=== PATIENT | female | born 1980 | race Caucasian/White ===

== ENCOUNTER 2016-08-14 06:46 | Day surgery (SDC) | payer BC ==
[~2016-08-14] VITALS: Ht 160 cm; Wt 65.5 kg
[2016-08-14] MEDS ORDERED: MTF1000T PO (07:29)
[2016-08-14] MEDS ORDERED: OXYC1TAB6 PO (07:29)
[2016-08-14 07:35] VITALS: Ht 160 cm; Wt 65.5 kg
[2016-08-14 07:56] VITALS: BP 119/76; PULSE 74; RESP 16
[2016-08-14] MEDS ORDERED: FENTAnyl 50 MCG/ML VIAL ONE (08:41)
[2016-08-14] MEDS ORDERED: MIDAZOLAM 1 MG/ML 2 ML INJ ONE ×2 (08:41)
[2016-08-14 09:05] VITALS: BP 105/85; PULSE 70; RESP 19
--- NOTE | 2016-08-14 11:39 | GILP ---
DATE OF PROCEDURE: NAME OF PROCEDURES: 1. Esophagogastroduodenoscopy and biopsy. 2. Colonoscopy and biopsy. SURGEON: Pollo Flores MD PREOPERATIVE DIAGNOSES: 1. Abdominal pain. 2. Chronic diarrhea. POSTOPERATIVE DIAGNOSES 1. Gastritis. 2. Gastric mucosal biopsies are positive for Helicobacter pylori infection. 3. Colonoscopy all the way to the cecum and into the terminal ileum. 4. Normal terminal ileum. 5. Poor prep making the exam suboptimal. 6. Internal hemorrhoids. 7. Random biopsies were taken to rule out microscopic colitis. INDICATION FOR THE PROCEDURE: Ms. Anabel Hutson is a 36-year-old female patient who had u pper abdominal pain, not responding to therapy. She also had lower abdominal pain and chronic diarr hea. The patient was scheduled for endoscopy and colonoscopy for further evaluation. The procedures and possible complications were well explained to the patient. The patient understoo d and consented to the procedure. DESCRIPTION OF PROCEDURE: Under the influence of fentanyl and Versed, the gastroscope was carefully introduced into the esophagus and under direct vision, it was advanced to the stomach and through t he pylorus into the duodenal bulb and descending duodenum. FINDINGS: ESOPHAGUS: The mucosa was normal. STOMACH: The patient had gastritis. Biopsies were positive for H pylori infection. DUODENUM: Normal. The colonoscope was carefully introduced in the rectum and under direct vision, it was advanced all the way to the cecum and into the terminal ileum. FINDINGS: The terminal ileum was normal. The patient had poor prep with liquid stool all over the colon making the exam somewhat suboptimal. Random biopsies were taken to rule out microscopic colit is. No gross neoplasm was identified. The patient had internal hemorrhoids. She tolerated the procedures very well and there was no complication from the procedures. At the en d of the procedures, she was awake with stable vital signs and she was discharged home to the [facility] f her family. IMPRESSION: 1. Gastritis. 2. Gastric mucosal biopsies were positive for Helicobacter pylori test. 3. Colonoscopy all the way to the cecum and into the terminal ileum. 4. Normal terminal ileum. 5. Poor prep with liquid stool all over making the exam somewhat suboptimal. 6. Random biopsies were taken to rule out microscopic colitis. 7. No gross neoplasm was identified. 8. Internal hemorrhoids. PLAN: 1. Nexium 24 hours p.o. every morning. 2. Bentyl 10 mg p.o. t.i.d. p.r.n. for pain or diarrhea. 3. Zantac 300 mg p.o. b.i.d. 4. Doxycycline 100 mg p.o. b.i.d. 5. Flagyl 500 mg p.o. b.i.d. 6. Pepto-Bismol 2 tablets) p.o. q.i.d. These last 4 medications for 14 days for H pylori infection. Dictated By: POLLO FLORES MD GD/NTS Conf#: [id number] DID#: [id number] CC: ROBYN LYONS MD;*EndCC*
--- NOTE | 2016-08-14 16:04 | CONS ---
DATE OF ADMISSION: 08/14/2016 DATE OF CONSULTATION: TYPE OF CONSULTATION: Preoperative gastroenterology consult Dear Dr. Cervantes: I thank you very much for this kind referral. HISTORY OF PRESENT ILLNESS: Ms. Anabel Hutson is a 36-year-old female patient who has bee n referred to me for further evaluation of abdominal pain. The patient states she has pain in the u pper part of the abdomen as well as on the right side. There is no past history of peptic ulcer dis ease. Patient underwent abdominal ultrasound and CT scan and no definite abnormality was detected. There is no history of gallstones. She does not have any fever, chills or jaundice. There is no h istory of liver disease. The patient also complains of chronic diarrhea. There is no past history of inflammatory bowel disease. She is not a hypertensive. She is a diabetic. She does not have an y heart disease or lung problem. There is no history of kidney disease. SOCIAL HISTORY: She is a nonsmoker. She does not abuse alcohol. FAMILY HISTORY: Negative for gastrointestinal tract neoplasm and inflammatory bowel disease. ALLERGIES: THERE IS NO HISTORY OF SIGNIFICANT DRUG ALLERGY. MEDICATIONS 1. Metformin. 2. Gabapentin. 3. Tylenol. PHYSICAL EXAMINATION VITAL SIGNS: She is 5 feet 3 inches tall and she weighs 149 pounds. HEART: Examination of the heart reveals normal first and second heart sounds. LUNGS: Clear. ABDOMEN: Soft without any distention. Liver and spleen are not palpable. There are no masses. Th ere is no focal tenderness. Normal bowel sounds are heard. CENTRAL NERVOUS SYSTEM: Does not reveal any focal neurological deficits. IMPRESSION: 1. Upper abdominal pain. 2. The patient had abdominal ultrasound and CT scan done and they were normal. 3. Chronic diarrhea and right-sided abdominal pain. 4. Rule out inflammatory bowel disease. 5. Diabetes mellitus. PLAN: Upper endoscopy and colonoscopy for further evaluation. The procedures and possible complications are well explained to the patient. She understands and co nsents to the procedures. I thank you once again. With warmest personal regards. Dictated By: POLLO RODRÍGUEZ/NTS Conf#: [id number] DID#: [id number]
== END 2016-08-14 09:38 | disposition home or self-care (01) ==
LOC: GIL 06:46
PROVIDERS: ATTEND Internal Medicine Gastroenterology
DX: K64.8 Other hemorrhoids (principal); K29.70 Gastritis, unspecified, without bleeding; B96.81 Helicobacter pylori [H. pylori] as the cause of diseases classified elsewhere; E11.9 Type 2 diabetes mellitus without complications
CPT/HCPCS: 43239; 45380; 82962; 84703; 87081; 88305; J2250; J3010; Z7610

== ENCOUNTER 2018-12-15 16:36 | Emergency (ER) | payer BC ==
[~2018-12-15] VITALS: Ht 157.5 cm; Wt 66.2 kg
[~2018-12-15 16:36] MED LIST: MTF1000T PO; OXYC1TAB6 PO
[2018-12-15 16:37] VITALS: Ht 157.5 cm; Wt 66.2 kg
[2018-12-15] MEDS ORDERED: SOD CHLORIDE 0.9% 1,000 ML IV STA (17:24)
[2018-12-15] MEDS ORDERED: morphine 2 MG INJ IV STA (17:24)
[2018-12-15] MEDS ORDERED: ONDANSETRON 4 MG INJ IV STA (17:24)
[2018-12-15] MEDS ORDERED: FAMOTIDINE 20 MG INJ IV STA (17:24)
--- NOTE | 2018-12-15 17:33 | ERD ---
ER Documentation Chief Complaint Chief Complaint RUQ PAIN , VOMITTING STARTED 3 DAYS HPI This is a 38-year-old female with a history of hypertension, hypercholesteremia, diabetes who presents to ED with complaints of upper abdominal pain x 3 days. Patient describes it as a constant sharp pain with radiation to the back. Admits to nausea with one episode of vomiting today. Pain is aggravated by eating. denies fever, chills, diarrhea, constipation, hematemesis, melena, hematochezia, dysuria, hematuria. No known drug allergies. Immunizations up-to-date. ROS All systems reviewed and are negative except as per history of present illness. Medications Home Meds Reported Medications Metformin* (Glucophage*) 1,000 Mg Tablet, 1000 MG PO DAILY, #30 TAB 08/14/16 Oxycodone Hcl-Acetaminophen* (Oxycodone Hcl-Acetaminophen*) 2.5-325 Mg Tablet, 1 TAB PO ONCE PRN for PAIN, TAB 08/14/16 Allergies Allergies: Coded Allergies: No Known Allergy (Unverified , 08/14/16) PMhx/Soc History of Surgery: Yes ( x4) Anesthesia Reaction: No Hx Neurological Disorder: No Hx Respiratory Disorders: No Hx Cardiac Disorders: No Hx Psychiatric Problems: No Hx Miscellaneous Medical Probl: No Hx Alcohol Use: No Hx Substance Use: No Hx Tobacco Use: No Smoking Status: Never smoker FmHx Family History: No diabetes Physical Exam Vitals Vital Signs Date Temp Pulse Resp B/P (MAP) Pulse Ox O2 O2 Flow FiO2 Time Delivery Rate 12/15/18 97.4 78 20 105/69 98 16:37 (81) Physical Exam Physical Exam Vitals signs: Reviewed by me. General: Well developed, well nourished, in mild distress. Patient is awake and alert. Head: Normocephalic, atraumatic. Eyes: Normal conjunctiva, Pupils PERRLA, EOM intact grossly ENT: Pharynx is clear, Moist mucous membranes, external ears, nose and mouth normal Neck: Supple, no masses, lymphadenopathy or JVD Respiratory: Clear to auscultation bilaterally with no wheezing, rhonchi, rales, no distress Cardiovascular: RRR, no murmurs, rubs, or gallops Abdominal: Soft, nondistended, no peritoneal signs, no rigidity, no surgical abdomen, bowel sounds present all 4 quadrants, moderate tenderness palpation in the right upper quadrant, Rodriguez sign positive, nontender palpation in all other areas, McBurney's point nontender : Deferred MSK: No edema, no unilateral swelling, 5/5 strength Back: No midline tenderness. No flank tenderness Neurologic: Alert and oriented, moving all extremities, normal speech, no focal weakness, no cerebellar signs. Normal mentation Skin: warm and dry, No rash Psych: Normal mood Result Diagram: 12/15/18 1738 12/15/18 1738 Results 24 hrs Laboratory Tests Test 12/15/18 17:38 12/15/18 17:40 White Blood Count 4.7 10^3/ul Red Blood Count 4.80 10^6/ul Hemoglobin 14.3 g/dl Hematocrit 42.1 % Mean Corpuscular Volume 87.7 fl Mean Corpuscular Hemoglobin 29.8 pg Mean Corpuscular Hemoglobin Concent 34.0 g/dl Red Cell Distribution Width 12.1 % Platelet Count 196 10^3/UL Mean Platelet Volume 10.8 fl Immature Granulocytes % 0.400 % Neutrophils % 46.4 % Lymphocytes % 40.0 % Monocytes % 9.1 % Eosinophils % 3.0 % Basophils % 1.1 % Nucleated Red Blood Cells % 0.0 /100WBC Immature Granulocytes # 0.020 10^3/ul Neutrophils # 2.2 10^3/ul Lymphocytes # 1.9 10^3/ul Monocytes # 0.4 10^3/ul Eosinophils # 0.1 10^3/ul Basophils # 0.1 10^3/ul Nucleated Red Blood Cells # 0.0 10^3/ul Urine Color YELLOW Urine Clarity CLEAR Urine pH 6.0 Urine Specific [place] 1.028 Urine Ketones NEGATIVE mg/dL Urine Nitrite NEGATIVE mg/dL Urine Bilirubin NEGATIVE mg/dL Urine Urobilinogen NEGATIVE mg/dL Urine Leukocyte Esterase NEGATIVE Libra/ul Urine Hemoglobin NEGATIVE mg/dL Urine Glucose 3+ mg/dL Urine Total Protein NEGATIVE mg/dl Sodium Level 136 mmol/L Potassium Level 3.9 mmol/L Chloride Level 100 mmol/L Carbon Dioxide Level 28 mmol/L Anion Gap 8 Blood Urea Nitrogen 14 mg/dl Creatinine 0.64 mg/dl Est Glomerular Filtrat Rate mL/min > 60 mL/min Glucose Level 298 mg/dl Calcium Level 9.0 mg/dl Total Bilirubin 0.4 mg/dl Direct Bilirubin 0.00 mg/dl Indirect Bilirubin 0.4 mg/dl Aspartate Amino Transf (AST/SGOT) 23 IU/L Alanine Aminotransferase (ALT/SGPT) 26 IU/L Alkaline Phosphatase 137 IU/L Total Protein 7.2 g/dl Albumin 3.9 g/dl Globulin 3.30 g/dl Albumin/Globulin Ratio 1.18 Lipase 74 U/L POC Beta HCG, Qualitative NEGATIVE Current Medications Medications Dose Sig/Debora Start Time Status Last (Trade) Ordered Route PRN Stop Time Admin Dose Reason Admin Sodium 1,000 ml @ Q1H STAT 12/15/18 DC 12/15/18 Chloride 1,000 mls/hr IV 17:24 17:44 12/15/18 18:23 Morphine 4 mg ONCE STAT 12/15/18 DC 12/15/18 Sulfate IV 17:24 17:43 (morphine) 12/15/18 17:26 Ondansetron 4 mg ONCE STAT 12/15/18 DC 12/15/18 HCl (Zofran IV 17:24 17:44 Inj) 12/15/18 17:26 Famotidine 20 mg ONCE STAT 12/15/18 DC 12/15/18 (Pepcid Iv) IV 17:24 17:44 12/15/18 17:26 Procedures/MDM EKG, MONITORS, & DIAGNOSTIC IMAGING: [place] [id number] Radiology Main Line: [phone] DIAGNOSTIC IMAGING REPORT Patient: SONAM MUJICA : 1980 Age: 38 Sex: F MR #: [id number] DOS: 12/15/18 1724 Ordering MD: MARIBELL CROWE PA-C Location: [facility] Room/Bed: PROCEDURE: Right upper quadrant ultrasound CLINICAL INDICATION: Abdominal pain TECHNIQUE: Multiple real-time images were acquired of the patient's abdomen and right retroperitoneum utilizing a high resolution transducer. COMPARISON: None FINDINGS: The liver is normal in echogenicity and measures 12.6 cm. No focal hepatic masses are seen. The gallbladder is physiologically distended. There is no evidence of gallstones, gallbladder wall thickening, or pericholecystic fluid. The intra and extrahepatic bile ducts are normal in caliber. The common bile duct measures 3.3 mm. Midline images demonstrate the pancreas head to be normal in echogenicity without obvious inflammatory change. The body and tail are suboptimally seen. Survey views of the right kidney demonstrate no evidence of hydronephrosis or renal calculi. The right kidney measures 11.6 cm. IMPRESSION: Unremarkable right upper quadrant ultrasound. No evidence of cholelithiasis or acute cholecystitis.. RPTAT: HH .Ivan Lancaster MD, MD Date Time Electronically viewed and signed by .Ivan Lancaster MD, on 12/15/2018 18:31 .W/ CC: MARIBELL CROWE PA-C [id number] LAB INTERPRETATION: CBC shows no evidence of hemorrhage or infection Chemistry shows elevated glucose of 298, otherwise no evidence of significant electrolyte abnormality or renal insufficiency Liver function test shows a mildly elevated alkaline phosphatase of 137 Lipase shows no evidence of acute pancreatitis Urine negative Urinalysis shows 3+ glucose but otherwise unremarkable ER COURSE: The patient was given morphine, IV normal saline, Zofran, Pepcid The medication was well tolerated and the patient reports improvement in symptoms. The patient was stable throughout ED course. I kept the patient and/or family informed of laboratory and diagnostic imaging results throughout the emergency room course. The patient was promptly evaluated and a treatment plan was devised based on H&P and other data. This plan was discussed with the patient who agreed and had no further questions or concerns prior to discharge. MEDICAL DECISION MAKING: This is a 38-year-old female presents ED with complaints of upper abdominal pain x3 days. Non- woman presenting with abdominal pain. test is negative. Considered causes of female-specific abdominal pain including pelvic inflammatory disease, tubo-ovarian abscess, Gthl-Lamh-Ykizte, and ovarian torsion. Also considered causes of abdominal pain that are not gender-specific (e.g., appendicitis, volvulus, small bowel obstruction, mesenteric adenitis, acute cholecystitis/choledocholithiasis and other biliary pathology, etc.). Patient well-appearing with normal vital signs. No peritoneal signs and abdomen benign on multiple repeat examinations. Pt well hydrated. Laboratory testing and imaging here reviewed and normal. Given history this is likely a gastritis. Patient will be sent home with oral Pepcid and advised to follow-up with primary care physician. Patient given strict return precautions for worsening pain, inability to eat/drink, fevers (temperature over 100.4F), or other concerns. Prior to discharge all questions answered. She agrees with treatment plan and understands strict return precautions. Follow-up for repeat abdominal exam within 12 hours. DISPOSITION PLAN: We discussed follow up with the patient's primary care doctor within 24 to 48 hours. Patient counseled regarding my diagnostic impression and care plan. Prior to discharge all questions answered. Pt agrees with treatment plan and understands strict return precautions. Precautionary instructions provided including instructions to return to the ER if not improving or for any worsening or changing symptoms or concerns. SPECIALIST FOLLOW UP RECOMMENDED: None Patient has been advised to follow up with primary care in 1-2 days. Disclaimer: Inadvertent spelling and grammatical errors are likely due to EHR/dictation software use and do not reflect on the overall quality of patient care. Also, please note that the electronic time recorded on this note does not necessarily reflect the actual time of the patient encounter. Departure Diagnosis: Primary Impression: Abdominal pain Condition: Stable Patient Instructions: Abdominal Pain, Gastritis (Adult), Gastritis Vs. Ulcer [facility] Additional Instructions: Paciente aconseja volver a Departamento de urgencias inmediatamente para sntomas nuevos o que empeoran . Paciente aconseja posteriores con el PCP en 1-2 meadows . Paciente verbaliza la comprehensin y est de acuerdo con el tratamiento y el curso de accin. Si el paciente no tiene ninguna de atencin primaria pueden seguir con [facility] [address] [place] [address] o [facility] + [address] [address] MARIBELL CROWE PA-C Dec 15, 2018 17:33
[2018-12-15] MEDS ORDERED: FAMO-96 PO (18:44)
[2018-12-15] MEDS ORDERED: LIDOCAINE/MYLANTA 40 ML BTL PO STA (18:46)
[2018-12-15 19:04] VITALS: BP 114/78; PULSE 73; RESP 18
== END 2018-12-15 19:06 | disposition home or self-care (01) ==
LOC: FTE 16:36
DX: R10.9 Unspecified abdominal pain (principal); I10 Essential (primary) hypertension; E11.9 Type 2 diabetes mellitus without complications; R11.2 Nausea with vomiting, unspecified; Z79.84 Long term (current) use of oral hypoglycemic drugs
CPT/HCPCS: 36415; 76705; 80053; 81003; 81025; 83690; 85025; 96374; 96375; 99285; J2270; J2405; J7030; Z7610

== ENCOUNTER 2018-12-24 21:55 | Emergency (ER) | payer BC ==
[~2018-12-24] VITALS: Ht 165.1 cm; Wt 68.4 kg
[~2018-12-24 21:55] MED LIST changes: +FAMO-96 PO
[2018-12-24 21:58] VITALS: Ht 165.1 cm; Wt 68.4 kg
[2018-12-24] MEDS ORDERED: ONDANSETRON (ODT) 4 MG TAB ODT STA (23:57)
[2018-12-24] MEDS ORDERED: KETOROLAC 30 MG INJ IM STA (23:57)
[2018-12-25] MEDS ORDERED: IOHEXOL 14.3 MG(I)/ML (ADULT) BTL PO ONE
[2018-12-25] MEDS ORDERED: SODIUM CHLORIDE 0.9% 1L BAG IV* ONE
[2018-12-25] MEDS ORDERED: LORAZEPAM 0.5 MG TAB PO ONE (01:00)
[2018-12-25] MEDS ORDERED: SOD CHLORIDE 0.9% 100 ML ONE (01:22)
[2018-12-25] MEDS ORDERED: IOHEXOL 300MG/ML 150 ML BTL ONE (01:22)
[2018-12-25] MEDS ORDERED: morphine 2 MG INJ IV STA (01:47)
[2018-12-25] MEDS ORDERED: CEPH-443 PO (02:20)
[2018-12-25] MEDS ORDERED: IBUP-1542 PO (02:20)
--- NOTE | 2018-12-25 02:34 | ERD ---
ER Documentation Chief Complaint Chief Complaint upper abd pain x 3 months and now has "spots" HPI 38-year-old female presented to ED for right upper quadrant abdominal pain x3 months. Patient was seen the other day in the ED for the same symptoms and received an ultrasound that showed no signs of acute cholecystitis. Patient is returning because sh she still has pain that is radiating to her back. Patient rates the pain 9 out of 10 describes it as a sharp stabbing pain. Patient states that she does drink alcohol denies any chance of being . Urine was done the other day and was negative. Patient patient states that she is nauseous and she feels like she is going to vomit. Patient denies any allergies to medications ROS All systems reviewed and are negative except as per history of present illness. Medications Home Meds Active Scripts Ibuprofen* (Motrin*) 600 Mg Tab, 600 MG PO Q6, #30 TAB Prov:ESTRELLITA JONES PA-C 12/25/18 Cephalexin* (Keflex*) 500 Mg Capsule, 500 MG PO QID for 5 Days, CAP Prov:ESTRELLITA JONES PA-C 12/25/18 Famotidine* (Pepcid*) 20 Mg Tablet, 20 MG PO BID for 4 Days, TAB Prov:MARIBELL CROWE PA-C 12/15/18 Reported Medications Metformin* (Glucophage*) 1,000 Mg Tablet, 1000 MG PO DAILY, #30 TAB 08/14/16 Oxycodone Hcl-Acetaminophen* (Oxycodone Hcl-Acetaminophen*) 2.5-325 Mg Tablet, 1 TAB PO ONCE PRN for PAIN, TAB 08/14/16 Allergies Allergies: Coded Allergies: No Known Allergy (Unverified , 08/14/16) PMhx/Soc History of Surgery: Yes ( x4) Anesthesia Reaction: No Hx Neurological Disorder: No Hx Respiratory Disorders: No Hx Cardiac Disorders: No Hx Psychiatric Problems: No Hx Miscellaneous Medical Probl: No Hx Alcohol Use: No Hx Substance Use: No Hx Tobacco Use: No Smoking Status: Never smoker FmHx Family History: No diabetes, No coronary disease, No other Physical Exam Vitals Vital Signs Date Temp Pulse Resp B/P (MAP) Pulse Ox O2 O2 Flow FiO2 Time Delivery Rate 12/24/18 98.3 81 16 121/90 98 21:58 (100) Physical Exam GENERAL: The patient is well-appearing, well-nourished, in no acute distress HEENT: Atraumatic. Conjunctivae are pink. Pupils equal, round, and reactive to light. There is no scleral icterus. Tympanic membranes clear bilaterally. Oropharynx clear. No nystagmus or photophobia. NECK: C-spine is soft and supple. There is no meningismus. There is no cervical lymphadenopathy. CHEST: Clear to auscultation bilaterally. There are no rales, wheezes or rhonchi. HEART: Regular rate and rhythm. No murmurs, clicks, rubs or gallops. ABDOMEN: Right upper quadrant tenderness to palpation radiating to the back BACK: No midline or flank tenderness. EXTREMITIES: Equal pulses bilaterally. There is no peripheral clubbing, cyanosis or edema. No focal swelling or erythema. Full range of motion. Gross ly neurovascularly intact. Result Diagram: 12/25/18 0028 12/25/18 0028 Results 24 hrs Laboratory Tests Test 12/24/18 23:48 12/24/18 23:50 12/24/18 23:53 12/25/18 00:28 Urine Color YELLOW Urine Clarity SLIGHTLY CLOUDY Urine pH 8.0 Urine Specific 1.016 [place] Urine Ketones NEGATIVE mg/dL Urine Nitrite NEGATIVE mg/dL Urine Bilirubin NEGATIVE mg/dL Urine NEGATIVE mg/dL Urobilinogen Urine Leukocyte 3+ Libra/ul Esterase Urine Microscopic 1 /HPF RBC Urine Microscopic 18 /HPF WBC Urine Squamous FEW /HPF Epithelial Cells Urine Hemoglobin NEGATIVE mg/dL Urine Glucose 3+ mg/dL Urine Total NEGATIVE mg/dl Protein Bedside Urine pH 7.0 (LAB) Bedside Urine Negative Protein (LAB) Bedside Urine 0.50% Glucose (UA) Bedside Urine Negative Ketones (LAB) Bedside Urine Negative Blood Bedside Urine Negative Nitrite (LAB) Bedside Urine 1+ Leukocyte Esteras e (L POC Beta HCG, NEGATIVE Qualitative White Blood Count 4.8 10^3/ul Red Blood Count 4.63 10^6/ul Hemoglobin 14.1 g/dl Hematocrit 40.6 % Mean Corpuscular 87.7 fl Volume Mean Corpuscular 30.5 pg Hemoglobin Mean Corpuscular 34.7 g/dl Hemoglobin Concen t Red Cell 12.0 % Distribution Width Platelet Count 226 10^3/UL Mean Platelet 10.6 fl Volume Immature 0.200 % Granulocytes % Neutrophils % 46.9 % Lymphocytes % 40.6 % Monocytes % 8.4 % Eosinophils % 3.1 % Basophils % 0.8 % Nucleated Red 0.0 /100WBC Blood Cells % Immature 0.010 10^3/ul Granulocytes # Neutrophils # 2.2 10^3/ul Lymphocytes # 1.9 10^3/ul Monocytes # 0.4 10^3/ul Eosinophils # 0.2 10^3/ul Basophils # 0.0 10^3/ul Nucleated Red 0.0 10^3/ul Blood Cells # Sodium Level 142 mmol/L Potassium Level 4.0 mmol/L Chloride Level 103 mmol/L Carbon Dioxide 29 mmol/L Level Anion Gap 10 Blood Urea 15 mg/dl Nitrogen Creatinine 0.59 mg/dl Est Glomerular > 60 mL/min Filtrat Rate mL/min Glucose Level 255 mg/dl Calcium Level 9.6 mg/dl Total Bilirubin 0.5 mg/dl Direct Bilirubin 0.00 mg/dl Indirect 0.5 mg/dl Bilirubin Aspartate Amino 30 IU/L Transf (AST/SGOT) Alanine 37 IU/L Aminotransferase (ALT/SGPT) Alkaline 186 IU/L Phosphatase Total Protein 7.9 g/dl Albumin 4.4 g/dl Globulin 3.50 g/dl Albumin/Globulin 1.25 Ratio Lipase 94 U/L Test 12/25/18 00:40 POC Beta HCG, NEGATIVE Qualitative Current Medications Medications Dose Sig/Debora Start Time Status Last (Trade) Ordered Route PRN Stop Time Admin Dose Reason Admin Ketorolac 30 mg ONCE STAT 12/24/18 DC 12/25/18 Tromethamine IM 23:57 00:27 (Toradol) 12/25/18 00:03 Ondansetron 4 mg ONCE STAT 12/24/18 DC 12/25/18 HCl (Zofran ODT 23:57 00:27 Odt) 12/25/18 00:03 Iohexol Adult GIVE PRIOR 12/25/18 Cancel ((Gastrografi Formulation TO CT ONCE 00:00 n (Ple... PO 12/25/18 00:01 therapeutic equivalent)) Sodium 1,360 ml ONCE ONCE 12/25/18 DC 12/25/18 Chloride IV* 00:00 00:27 (NS) 12/25/18 00:03 Lorazepam 0.5 mg ONCE ONCE 12/25/18 DC 12/25/18 (Ativan) PO 01:00 00:47 12/25/18 01:01 IV Flush 10 ml STK-MED 12/25/18 DC 12/25/18 (NS 10 ml) ONCE .ROUTE 01: 01:33 12/25/18 01:23 Sodium 100 ml @ ud STK-MED 12/25/18 DC 12/25/18 Chloride ONCE .ROUTE 01: 01:33 12/25/18 01:23 Iohexol 150 ml STK-MED 12/25/18 DC 12/25/18 (Omnipaque ONCE .ROUTE 01: 01:33 300mg/ ml) 12/25/18 01:23 Morphine 1 mg ONCE STAT 12/25/18 DC 12/25/18 Sulfate IV 01:47 01:52 (morphine) 12/25/18 01:49 Procedures/MDM ED course: CBC, CMP, lipase, UA CT IV contrast, Toradol, Ativan, morphine, normal saline The patient was stable throughout the ED course. The patient and/or family informed of laboratory and diagnostic imaging results throughout the ED course. Diagnostic imaging: Read by radiologist .Christopher Fitzpatrick MD PROCEDURE: CT ABDOMEN/PELVIS WITH CONTRAST CLINICAL INDICATION: 38-year-old female with abdominal pain. TECHNIQUE: The study was performed utilizing a GE [employer] VCT 64-slice CT scanner. Direct axial sections were obtained through the abdomen and pelvis with the use of 100 cc of Omnipaque-300 nonionic intravenous contrast material. Sagittal and coronal reformations were obtained. One or more of the following dose reduction techniques were utilized: automated exposure control, adjustment of the mA and/or kV according to patient's size and/or use of iterative reconstruction technique. DICOM images are available. The images were reviewed on a PACS workstation. CTD/vol = 11.34 mGy; Total Exam DLP = 657.13 mGy.cm. COMPARISON: Right upper quadrant ultrasound December 15, 2018. FINDINGS: The lung bases are unremarkable. There is no evidence for significant pleural effusion. The liver has a normal size and contour. There is diffuse decreased density throughout the liver consistent with fatty infiltration but without focal areas of abnormal density or contrast enhancement. No intrahepatic nor extrahepatic biliary ductal dilatation is seen. The gallbladder is without evidence for calcified stones, significant wall thickening or pericholecystic fluid. The pancreas is without areas of abnormal attenuation or contrast enhancement. This spleen is identified and has a normal size without abnormal density or contrast enhancement. The adrenal glands are unremarkable. The kidne ys are functional bilaterally without abnormal density. No hydroureteronephrosis nor nephroureterolithiasis is evident. The urinary bladder contains urine. The stomach is distended with particular material. There is fecalization of the distal small bowel with retained stool within the colon without gross bowel obstruction. The appendix is visualized and is without edema or surrounding inflammatory reaction. The uterus is anteflexed. There is minimal pelvic free fluid. The aortoiliac vessels are without aneurysmal dilatation. The osseous structures are intact. IMPRESSION: 1. Hepatic steatosis. 2. Fecalization of the small bowel with retained stool in the colon without obstruction. 3. No CT evidence for appendicitis. 4. Minimal pelvic free fluid. Medications given in ER: Toradol Zofran Ativan Morphine Patient tolerated medication well with no adverse reactions. Patient reported improvement in pain. Medical decision making: Patient is a 38-year-old female presented to ED for right upper quadrant pain radiating to her back. Patient was just recently discharged from the ER and was told that she had stomach ulcers. Patient states she is presenting today because the pain has worsened has not gotten better. Patient is rating her pain 10 out of 10. Patient was given Toradol and Zofran on reevaluation the patient stated that she still in a lot of pain and discomfort and anxious patient was given Ativan. Patient's boyfriend and patient are both been complaining to the nurse that the pain has not been controlled and they are becoming frustrated. The patient was reevaluated and was given a dose of morphine 1 mg. Patient's lab results were unremarkable except for a UA which indicated a UTI. Patient CT scan showed impression of hepatic stenosis, no evidence of appendicitis, minimal pelvic free fluid. The patient CBC was unremarkable. On reevaluation the pa tient appears to be resting comfortably and reports improvement in symptoms. At this time I have low suspicion of acute coronary syndrome, AAA, mesenteric ischemia, lower lobe pneumonia, DKA, bowel perforation, cholecystitis, choledocholithiasis, ascending cholangitis, hepatic abscess, pancreatitis, PUD, gastritis, GERD, splenic rupture, diverticulitis, pyelonephritis, nephrolithiasis, appendicitis, constipation, , ectopic , PID, ovarian torsion or tubo-ovarian abscess. The patient is being sent home with a prescription for Keflex and Motrin. The patient was advised to follow-up with her primary care provider in 1 to 2 days regarding this visit. Patient was advised that if symptoms worsen to return to the ED immediately. Patient had no further questions upon discharge and is in agreement with the treatment plan Prescription for home: Keflex Motrin Discharge: At this time, patient is stable for discharge and outpatient management. I have instructed the patient to follow-up with his\\her primary care physician in 1 to 2 days. I have discussed with the patient the possibility of needing to see a specialist for further work-up and imaging studies if symptoms persist. I have instructed the patient to promptly return to the ER for any new or worsening s ymptoms including increased pain, fever, nausea, vomiting, weakness or LOC. The patient and\\or family expressed understanding of and agreement with this plan. All questions were answered. Home care instructions were provided. Disclaimer: Inadvertent spelling and grammatical errors are likely due to EHR\\dictation software use and do not reflect on the overall quality of patient care. Also, please note that the electronic time recorded on the note does not necessarily reflect the actual time of the patient encounter. Departure Diagnosis: Primary Impression: UTI (urinary tract infection) Urinary tract infection type: site unspecified Hematuria presence: without hematuria Qualified Codes: N39.0 - Urinary tract infection, site not specified Condition: Stable Patient Instructions: Understanding Urinary Tract Infections (UTIs) Referrals: [facility] YOU HAVE RECEIVED A MEDICAL SCREENING EXAM AND THE RESULTS INDICATE THAT YOU DO NOT HAVE A CONDITION THAT REQUIRES URGENT TREATMENT IN THE EMERGENCY DEPARTMENT. FURTHER EVALUATION AND TREATMENT OF YOUR CONDITION CAN WAIT UNTIL YOU ARE SEEN IN YOUR DOCTORS OFFICE WITHIN THE NEXT 1-2 DAYS. IT IS YOUR RESPONSIBILITY TO MAKE AN APPOINTMENT FOR FOLOW-UP CARE. IF YOU HAVE A PRIMARY DOCTOR --you should call your primary doctor and schedule an appointment IF YOU DO NOT HAVE A PRIMARY DOCTOR YOU CAN CALL OUR PHYSICIAN REFERRAL HOTLINE AT IF YOU CAN NOT AFFORD TO SEE A PHYSICIAN YOU CAN CHOSE FROM THE FOLLOWING [facility] [address] [facility] [facility] [address] [facility]. [facility] [address] [facility] [address] [facility] [address] [facility] [facility]. [address] [facility]. [facility] YOU HAVE RECEIVED A MEDICAL SCREENING EXAM AND THE RESULTS INDICATE THAT YOU DO NOT HAVE A CONDITION THAT REQUIRES URGENT TREATMENT IN THE EMERGENCY DEPARTMENT. FURTHER EVALUATION AND TREATMENT OF YOUR CONDITION CAN WAIT UNTIL YOU ARE SEEN IN YOUR DOCTORS OFFICE WITHIN THE NEXT 1-2 DAYS. IT IS YOUR RESPONSIBILITY TO MAKE AN APPOINTMENT FOR FOLOW-UP CARE. IF YOU HAVE A PRIMARY DOCTOR --you should call your primary doctor and schedule and appointment IF YOU DO NOT HAVE A PRIMARY DOCTOR YOU CAN CALL OUR PHYSICIAN REFERRAL HOTLINE AT . IF YOU CAN NOT AFFORD TO SEE A PHYSICIAN YOU CAN CHOSE FROM THE FOLLOWING [facility] INSTITUTIONS: [facility] [address] [place] [address] [facility] [address] [place] [address] [facility] + [facility] [address] [place] [address] ESTRELLITA JONES PA-C Dec 25, 2018 02:32
[2018-12-25] MEDS ORDERED: CYCL10TA7 PO (02:41)
[2018-12-25 02:43] VITALS: BP 136/78; PULSE 82; RESP 16
== END 2018-12-25 02:44 | disposition home or self-care (01) ==
LOC: FTE 21:55
DX: N39.0 Urinary tract infection, site not specified (principal)
CPT/HCPCS: 74177; 80053; 81001; 81025; 83690; 85025; 96372; 96374; 99285; J1885; J2270; J7030; Q9967; Z7610; 81003